=== PATIENT | male | born 1990 | race Caucasian/White ===

== ENCOUNTER 2025-03-14 09:45 | Emergency (ER) | payer MEDICARE, SELFPAY ==
[2025-03-14 09:50] VITALS: BP 120/74
[2025-03-14 11:10] VITALS: BP 114/70
[2025-03-14 11:11] VITALS: BMI 24.5
--- NOTE | 2025-03-14 11:17 | ED.GENMED ---
History of Present Illness
General
Chief Complaint: Chest Problem
Source: patient
Exam Limitations: none
Time Seen by Provider: 03/14/25 10:16
History of Present Illness
History of Present Illness:
34-year-old male heart pounding last evening. Some mild chest discomfort at that time. No pleuritic pain. No racing. No syncope. Symptoms have persisted today. Mild in nature.
Past History
Past History
ED Past Medical History: Psychiatric
ED Past Surgical History: Other ([place] teeth)
Review of Systems
Review of Systems
All Other Systems: Not applicable
Constitutional: Denies fever
Respiratory: Denies trouble breathing
Cardiac: Denies syncope
Phy Exam
Physical Exam
Physical Exam:
GENERAL: Alert and oriented in no apparent distress
EYE: Orbits normal.
NECK: Supple, no thyroid palpable.
ENT: Pharynx without erythema
CARDIAC: Regular rate and rhythm without any obvious murmurs.
LUNGS: Clear breath sounds,normal
ABDOMEN: Soft, without focal tenderness or distention
NEUROLOGICAL: Alert and oriented , grossly non-focal
SKIN: Warm and dry, no rash or lesion, no discoloration, skin intact.
MUSCULOSKELETAL: No edema,no deformity.Good color
PSYCH: Normal and appropriate interaction.
Course
Orders/Labs/Results
Orders:
Orders
03/14/25 09:45
EKG [Electrocardiogram (*1)] Urgent
Reason for Study: Chest Pain
03/14/25 09:46
EKG- Treatment ONCE
03/14/25 10:51
CR Chest - 2 Views Urgent
Comment:
Reason For Exam: cp
Pulse Ox/cont/shift [RESP] Stat
Quantity: 1
03/14/25 11:50
Basic Metabolic Panel Urgent
Complete Blood Count/With Diff Urgent
Troponin I Urgent
Abnormal Lab Results
03/14/25
11:50
RBC 4.68 L 10^6/uL
(4.70-6.10)
Absolute Monos (auto) 0.7 H 10^3/uL
(0.1-0.6)
Lymphocytes % 17.8 L %
(20.5-51.1)
BUN 6 L mg/dl
(9-20)
Creatinine 0.6 L mg/dL
(0.7-1.3)
03/14/25 11:50
03/14/25 11:50
Vital Signs
Initial and Last Documented VS:
Initial Vital Signs
Temp Pulse Resp BP Pulse Ox
97.8 F 76 16 120/74 98
03/14/25 09:50 03/14/25 09:50 03/14/25 09:50 03/14/25 09:50 03/14/25 09:50
Last Documented Vital Signs
Temp Pulse Resp BP Pulse Ox
97.8 F 67 18 114/70 99
03/14/25 09:50 03/14/25 12:30 03/14/25 12:30 03/14/25 11:10 03/14/25 12:30
MDM/Problems Addressed
Differential Diagnosis Includes:
No cardiac risk factors. Not describing any significant arrhythmia. Only describing heart pounding not racing. No syncope. Exam is unremarkable. EKG is stable. Labs pending. If all negative reassurance and follow-up
*Radiology
Radiology exam reviewed: radiology read reviewed (neg)
*Pulse Oximetry
SaO2: 98
Oxygen Mode of Delivery: Room air
Patient hypoxic: no
*EKG
Interpreted by ED Provider?: Yes
Interpretation: normal
Comparison EKG: no comparison EKG present
Heart Rate: 64
Rate: normal
Rhythm: sinus
Tyro: normal axis
Interval: normal interval
QRS Pattern: normal QRS
Ischemia: no ischemia
*Critical Care Note
Total Time (30-74mins, 75-104mins- exclusive of procedures): Not Applicable
Update Note
Update Note:
Workup unremarkable. No arrhythmias. Stable for discharge to follow-up
ED Attending Note
-
Portions of this chart may have been created with voice recognition software.� Occasional wrong word or��sound alike� substitutions may have occurred due to the inherent limitations of voice recognition software.
Discharge Plan
Departure
Patient Disposition: Home (Routine Discharge)
Date of Disposition: 03/14/25
Time of Disposition: 12:58
Patient with high blood pressure during this ER visit?: No
Discharge Problem:
Chest pain/palpitations
Instructions: Chest Pain (DC), Palpitations - ED (DC)
Referrals:
FERNANDO JEROME MD [Family Provider, Internal Medicine] - Follow up in 2-3 days
Interventions
Interventions:
*Risk Screen - Suicide Last Done: 03/14/25 12:50
*General Assessment Last Done: 03/14/25 12:50
*Neglect/Abuse Screening Last Done: 03/14/25 12:50
*ED- Fall Risk Assessment Last Done: 03/14/25 12:50
*ED COVID-19 Vaccine History Last Done: 03/14/25 12:50
Discharge Date and Time
Print Language: [place]
[2025-03-14 12:09] LABS: Hematocrit 40.8 % (39.0-52.0); Hemoglobin 14.1 g/dL (13.0-18.0); Mean Corp Hgb Conc. 34.6 g/dL (33.0-37.0); Mean Corpuscular Volume 87.2 fL (80.0-94.0); Nucleated Red Blood Cells % 0 % (-); Platelet Count 239 10^3/uL (130-400); Red Cell Dist. Width 12.0 % (11.5-14.5)
[2025-03-14 12:32] LABS: Blood Urea Nitrogen 6 mg/dl (9-20); Calcium 10.1 mg/dl (8.4-10.2); Carbon Dioxide 25 mmol/L (22-30); Chloride 107 mmol/L (98-107); Estimated Creatinine Clearance > 125 ml/min; Glucose 77 mg/dl (70-99); Potassium 4.2 mmol/L (3.5-5.1); Sodium 139 mmol/L (135-145); eGFR > 60.00
[2025-03-14 12:34] LABS: Troponin I < 0.012 ng/ml
== END 2025-03-14 13:45 | disposition home or self-care (01) ==
LOC: EMR 09:45
PROVIDERS: EMERGENCY PHYSICIAN Emergency Medicine; FAMILY PHYSICIAN Student in an Organized Health Care Education/Training Program
DX: R07.9 Chest pain, unspecified (principal); R00.2 Palpitations
CPT/HCPCS: 99284; 71046; 80048; 84484; 85025; 93005